=== PATIENT | male | born 1975 | race Caucasian/White ===

== ENCOUNTER 2020-11-07 12:34 | Emergency (ER) | payer OTHER, SELFPAY ==
--- NOTE | 2020-11-07 12:39 | ED.URI ---
HPI - URI/Sore Throat General Chief Complaint: Upper Respiratory Infection Stated Complaint: sore throat Time Seen by Provider: 11/07/20 12:39 Source: patient and RN notes reviewed History of Present Illness HPI Narrative: Patient is a 45-year-old male who presents the urgent care with complaints of a sore throat for the last 3 to 4 days. Patient states has been taking ibuprofen for the pain and it has seemed to have gotten a little better today. Patient states he has typical allergy type symptoms in the fall but states he has never had a sore throat like this before . Patient denies of any known exposure to strep or Covid. Denies of any other illness in the home. Patient has been Covid vaccinated and is also had Covid. No other acute complaints. No acute distress noted. Patient aware of the plan of care. Some parts of this dictation were generated by voice recognition software and may contain typographical and/or grammatical inaccuracies. Related Data Allergies Allergy/AdvReac Type Severity Reaction Status Date / Time No Known Allergies Allergy Unverified 11/24/12 11:10 Review of Systems Review of Systems: CONSTITUTIONAL: Denies fever, chills, or sweats. EYES: Denies visual changes, redness, or discharge. ENT: Denies rhinorrhea, congestion, otalgia. Reports of sore throat and postnasal drainage CARDIOVASCULAR: Denies chest pain, palpitations, or edema. RESPIRATORY: Denies cough or dyspnea. GASTROINTESTINAL: Denies abdominal pain, nausea, vomiting, or diarrhea. GENITOURINARY: Denies dysuria or hematuria. SKIN: Denies rash or itching. MUSCULOSKELETAL: Denies back pain, joint pain, or myalgia. NEUROLOGIC: Denies headache, numbness, or weakness. All other systems reviewed are negative, except as documented in HPI. PMFSH Social History Social History Alcohol intake: current Comments At the time of my signature, I reviewed and agree with the nursing past medical, surgical, social, and family history. There is no relevant family history pertinent to the patient complaint. Exam Narrative: GENERAL: This is a well-nourished, well-developed patient, in no apparent distress. HEAD: normocephalic, atraumatic. EYES: PERRL. Sclera clear/white. Vision is grossly intact. EARS: External ears normal, auditory canals clear and without drainage, TMs normal without perforation. Hearing grossly intact. NOSE: External nose normal with no obvious nasal discharge, nares without redness, no rhinorrhea. THROAT: Mucous membranes moist, moderate erythema noted posterior oropharynx with mild bilateral tonsillar edema/exudate with moderate postnasal drainage NECK: Neck supple, mild nontender submandibular lymphadenopathy CARDIOVASCULAR: Regular rate and rhythm without murmurs, gallops, or rubs. RESPIRATORY: Clear to auscultation. Breath sounds equal bilaterally. No wheezes, rales, or rhonchi. GASTROINTESTINAL: Abdomen soft, non-tender, nondistended. Bowel sounds are active. No hepato-splenomegaly, or palpable masses. No guarding. SKIN: warm, intact with no suspicious lesions or rash, good texture and turgor. NEURO: awake, alert, and oriented to person, place and time. There were no obvious focal neurologic abnormalities. EXTREMITIES: No clubbing, cyanosis, or edema. Course Vital Signs Vital signs: Vital Signs Temperature 97 F L 11/07/20 12:48 Pulse Rate 110 H 11/07/20 12:48 Respiratory Rate 16 11/07/20 12:48 Blood Pressure 147/101 H 11/07/20 12:48 Pulse Oximetry 99 11/07/20 12:48 Temperature 97 F L 11/07/20 12:48 Pulse Rate 110 H 11/07/20 12:48 Respiratory Rate 16 11/07/20 12:48 Blood Pressure 147/101 H 11/07/20 12:48 Pulse Oximetry 99 11/07/20 12:48 Reviewed-patient is informed that they may have pre-hypertension or hypertension based on a blood pressure reading in the department. I recommend the patient call the primary care provider listed on their discharge instructions or a physician of their choice th
[2020-11-07 12:48] VITALS: BP 147/101; PULSE 110; RESP 16; TEMP 36.1; O2SAT 99
== END 2020-11-07 13:01 | disposition home or self-care (01) ==
PROVIDERS: Emergency Provider Nurse Practitioner Family
DX: J03.90 Acute tonsillitis, unspecified (principal)
CPT/HCPCS: 87081; 87880; 99203; G0463